=== PATIENT | female | born 1965 | race Caucasian/White ===

== ENCOUNTER 2017-11-26 15:42 | Emergency (ER) | payer MEDICARE, OTHER ==
[~2017-11-26] VITALS: Ht 172.7 cm; Wt 109.1 kg
[~2017-11-26 15:42] MED LIST: ALBU8HFA IH; BUSP10TA23 PO; DOCU250C91 PO; DULO60CA44 PO; GABA400C PO; LAMO25 PO; LEVO500 PO; PANT40TA25 PO; QUET200T PO; QUET25TA PO; ROPI1TAB11 PO; ROPI1TAB38 PO; TIOT185 IH
[2017-11-26] MEDS ORDERED: IBUP-2071 PO (15:57)
[2017-11-26] MEDS ORDERED: LORA1TAB3 PO (15:57)
[2017-11-26] MEDS ORDERED: ADV100 IH (15:57)
[2017-11-26] MEDS ORDERED: CLIN300C3 PO (15:57)
[2017-11-26] MEDS ORDERED: MIRT15 PO (15:57)
[2017-11-26] MEDS ORDERED: DOXY50CA7 PO (15:57)
[2017-11-26] MEDS ORDERED: BACL10TA PO (15:57)
[2017-11-26 16:32] LABS: BASOPHILS % (AUTO) 0.8 % (0.0-2.0); EOSINOPHILS % (AUTO) 4.7 % (1.0-6.0); HEMATOCRIT 32.7 % (36-46); HEMOGLOBIN 11.1 g/dL (12.0-16.0); LYMPHOCYTES % (AUTO) 33.5 % (22.0-44.0); MEAN CORPUSCULAR HEMOGLOBIN 28.2 pg (26.0-34.0); MEAN CORPUSCULAR HGB CONC 33.8 G/dL (31.0-37.0); MEAN CORPUSCULAR VOLUME 83 fL (80-100); MONOCYTES # (AUTO) 0.8 K/uL (0.1-1.0); MONOCYTES % (AUTO) 13.5 % (2.0-9.0); NEUTROPHILS # (AUTO) 2.8 K/uL (1.8-7.7); NEUTROPHILS % (AUTO) 47.5 % (40.0-70.0); PLATELET COUNT (AUTO) 318 K/uL (150-450); RED BLOOD CELL COUNT(AUTO) 3.93 MIL/uL (4.00-5.20); RED CELL DISTRIBUTION WIDTH 14.6 % (11.5-14.5)
[2017-11-26 16:44] LABS: ANION GAP 7 mmol/L (8-16); CARBON DIOXIDE 28 mmol/L (22-29); CHLORIDE 103 mmol/L (98-107); CREATININE 0.87 mg/dL (0.60-1.30); GLOMERULAR FILTR. RATE CALC > 60 mL/min (>60); GLUCOSE,RANDOM 117 mg/dL (70-110); POTASSIUM 3.5 mmol/L (3.5-5.1); SODIUM SERUM 138 mmol/L (136-145); UREA NITROGEN, BLOOD 15 mg/dL (7-18)
[2017-11-26 16:52] LABS: B-TYPE NATRIURETIC PEPTIDE 49 pg/mL (0-100)
[2017-11-26 17:09] LABS: ALANINE AMINOTRANSFERASE 43 U/L (12-78); ALBUMIN 3.3 g/dL (3.4-5.0); ALKALINE PHOSPHATASE 115 U/L (46-116); ASPARTATE AMINOTRANSFERASE 37 U/L (15-37); BILIRUBIN,TOTAL 0.2 mg/dL (0.1-1.0); CREATINE KINASE MB 2.9 ng/mL (0-5); CREATINE KINASE, TOTAL 531 U/L (26-192); TOTAL PROTEIN, SERUM 6.6 g/dL (6.4-8.2)
[2017-11-26 18:44] LABS: APPEARANCE,URINE CLOUDY (CLEAR); BILIRUBIN,URINE NEGATIVE (NEGATIVE); GLUCOSE, URINE (UA) NEGATIVE (NEGATIVE); KETONES,URINE NEGATIVE (NEGATIVE); LEUKOCYTE ESTERASE ,URINE NEGATIVE (NEGATIVE); NITRATE,URINE NEGATIVE (NEGATIVE); OCCULT BLOOD,URINE NEGATIVE (NEGATIVE); PH,URINE 5.5 (5.0-8.0); PROTEIN,URINE NEGATIVE (NEGATIVE); UROBILINOGEN,URINE 0.2 mg/dL (<=1.0)
[2017-11-26] MEDS ORDERED: ACETAMINOPHEN 325 MG TABLET PO ONE (19:00)
[2017-11-26] MEDS ORDERED: DOXY100C40 PO (19:03)
[2017-11-26] MEDS ORDERED: POTASSIUM CHLORIDE 20 MEQ ER TABLET PO ONE (19:30)
[2017-11-26] MEDS ORDERED: LORazepam 1 MG TABLET PO ONE (20:00)
[2017-11-26] MEDS ORDERED: LORazepam 2 MG/ML VIAL IM ONE (20:30)
[2017-11-26 21:35] VITALS: BP 139/74
== END 2017-11-26 21:46 | disposition home or self-care (01) ==
LOC: EMS 15:44
DX: M62.838 Other muscle spasm (principal); F41.9 Anxiety disorder, unspecified; F31.9 Bipolar disorder, unspecified; F17.210 Nicotine dependence, cigarettes, uncomplicated; Z88.8 Allergy status to other drugs, medicaments and biological substances
CPT/HCPCS: 36415; 80053; 81003; 82550; 82553; 83880; 84484; 85025; 85610; 85730; 93005; 96372; 99285; J2060

== ENCOUNTER 2018-12-12 15:13 | Emergency (ER) | payer MEDICARE, OTHER ==
[~2018-12-12] VITALS: Ht 172.7 cm; Wt 104.5 kg
[~2018-12-12 15:13] MED LIST changes: +ADV100 IH; +BACL10TA PO; -BUSP10TA23 PO; +CLIN300C3 PO; -DOCU250C91 PO; +DOXY100C40 PO; -GABA400C PO; +IBUP-2071 PO; -LAMO25 PO; -LEVO500 PO; +LORA1TAB3 PO; +MIRT15 PO; -PANT40TA25 PO; -QUET200T PO; -QUET25TA PO; -ROPI1TAB11 PO; -ROPI1TAB38 PO; -TIOT185 IH
[2018-12-12] MEDS ORDERED: SODIUM CHLORIDE 0.9% 1,000 ML IV ONE (17:00)
[2018-12-12] MEDS ORDERED: ONDANSETRON HCL 4 MG/2 ML VIAL IVP ONE (17:00)
[2018-12-12 17:11] LABS: BASOPHILS % (AUTO) 0.4 % (0.0-2.0); EOSINOPHILS % (AUTO) 4.2 % (1.0-6.0); HEMATOCRIT 40.8 % (36-46); HEMOGLOBIN 13.4 g/dL (12.0-16.0); LYMPHOCYTES # (AUTO) 1.4 K/uL (1.0-4.8); LYMPHOCYTES % (AUTO) 13.6 % (22.0-44.0); MEAN CORPUSCULAR HEMOGLOBIN 28.7 pg (26.0-34.0); MEAN CORPUSCULAR HGB CONC 32.8 G/dL (31.0-37.0); MEAN CORPUSCULAR VOLUME 88 fL (80-100); MONOCYTES # (AUTO) 0.7 K/uL (0.1-1.0); NEUTROPHILS # (AUTO) 7.5 K/uL (1.8-7.7); NEUTROPHILS % (AUTO) 74.8 % (40.0-70.0); PLATELET COUNT (AUTO) 254 K/uL (150-450); RED BLOOD CELL COUNT(AUTO) 4.65 MIL/uL (4.00-5.20); RED CELL DISTRIBUTION WIDTH 13.8 % (11.5-14.5)
[2018-12-12 17:28] LABS: CALCIUM, TOTAL 9.3 mg/dL (8.8-10.5); CREATININE 1.09 mg/dL (0.60-1.30); POTASSIUM 4.5 mmol/L (3.5-5.1)
[2018-12-12 17:50] LABS: LITHIUM 0.64 mmol/L (0.60-1.20)
[2018-12-12 19:40] VITALS: BP 121/70
== END 2018-12-12 20:30 | disposition home or self-care (01) ==
LOC: EMS 15:13
DX: L02.232 Carbuncle of back [any part, except buttock and flank] (principal); R55 Syncope and collapse; R42 Dizziness and giddiness; F17.210 Nicotine dependence, cigarettes, uncomplicated; F41.9 Anxiety disorder, unspecified; F31.9 Bipolar disorder, unspecified; Z79.899 Other long term (current) drug therapy; Z88.8 Allergy status to other drugs, medicaments and biological substances
CPT/HCPCS: 36415; 80048; 80178; 85025; 93005; 96361; 96374; 99285; 99406; J2405; J7030

== ENCOUNTER 2024-02-07 14:45 | Outpatient (CLI) | payer MEDICARE, OTHER ==
[~2024-02-07 14:45] MED LIST changes: -ADV100 IH; -CLIN300C3 PO; +CLIN300C58 PO; -DOXY100C40 PO; +DOXY100C61 PO; +DULO-113 PO; -DULO60CA44 PO; +FLUT1DIS4 IH; +IBUP-1493 PO; -IBUP-2071 PO; +LORA-1000 PO; -LORA1TAB3 PO; +MIRT-89 PO; -MIRT15 PO
[2024-02-07 16:00] VITALS: BP 102/68; PULSE 86; RESP 20; TEMP 98.1; O2SAT 95
== END 2024-02-07 17:47 | disposition home or self-care (01) ==
LOC: CSU 14:45
PROVIDERS: ATTEND Psychiatry & Neurology Psychiatry
DX: F41.9 Anxiety disorder, unspecified (principal); F39 Unspecified mood [affective] disorder; Z56.89 Other problems related to employment; Z59.9 Problem related to housing and economic circumstances, unspecified; Z60.8 Other problems related to social environment; Z63.72 Alcoholism and drug addiction in family; Z63.79 Other stressful life events affecting family and household; Z63.9 Problem related to primary support group, unspecified
CPT/HCPCS: 90839; 90840

== ENCOUNTER 2024-02-12 14:28 | Outpatient (CLI) | payer OTHER ==
[2024-02-12 17:06] VITALS: BP 142/78; PULSE 78; RESP 18; TEMP 98.8; O2SAT 99
[2024-02-12] MEDS ORDERED: POLYETHYLENE GLYCOL 3350 17 GM PACKET PO ONE (17:15)
[2024-02-12] MEDS: LORazepam 2 MG TABLET PO ONE (17:42)
[2024-02-12] MEDS: BISACODYL 5 MG EC TABLET PO ONE (17:53)
== END 2024-02-12 20:14 | disposition home or self-care (01) ==
LOC: CSU 14:28
PROVIDERS: ATTEND Student in an Organized Health Care Education/Training Program
DX: F41.9 Anxiety disorder, unspecified (principal); F31.9 Bipolar disorder, unspecified; Z56.89 Other problems related to employment; Z59.9 Problem related to housing and economic circumstances, unspecified; Z60.8 Other problems related to social environment; Z63.72 Alcoholism and drug addiction in family; Z63.79 Other stressful life events affecting family and household; Z63.9 Problem related to primary support group, unspecified
CPT/HCPCS: 90839; 90840; Z7610